=== PATIENT | male | born 1960 | race Caucasian/White ===

== ENCOUNTER → 2020-11-30 | Outpatient (CLI) | payer MEDICARE | LOC: HEART CORB 11-16 10:30 | DX: R06.02 Shortness of breath (principal); I10 Essential (primary) hypertension; I73.9 Peripheral vascular disease, unspecified; I34.0 Nonrheumatic mitral (valve) insufficiency | CPT/HCPCS: 93306 ==

== ENCOUNTER → 2021-05-05 | Outpatient (CLI) | payer MEDICARE | LOC: EXRD 04-20 11:15 | DX: I73.9 Peripheral vascular disease, unspecified (principal) | CPT/HCPCS: 93925 ==

== ENCOUNTER → 2021-05-23 | Outpatient (CLI) | payer MEDICARE | LOC: CT 13:21 | DX: I73.9 Peripheral vascular disease, unspecified (principal); I70.201 Unspecified atherosclerosis of native arteries of extremities, right leg; R91.1 Solitary pulmonary nodule; K76.9 Liver disease, unspecified | CPT/HCPCS: 36415; 75635; 82565; Q9967 ==